=== PATIENT | male | born 1985 | race Caucasian/White ===

== ENCOUNTER 2021-08-03 01:06 | Emergency (ER) | payer OTHER ==
[~2021-08-03] VITALS: Ht 185.4 cm; Wt 108.9 kg
[2021-08-03 01:46] LABS: ABSOLUTE EOSINOPHILS 0.2 thou/uL (0.0-0.7); ABSOLUTE LYMPHOCYTES 1.8 thou/uL (0.8-5.3); ABSOLUTE MONOCYTES 0.5 thou/uL (0.0-1.2); ABSOLUTE NEUTROPHILS 4.2 thou/uL (1.6-8.1); BASOPHILS 0.4 %; EOSINOPHILS 2.4 %; HEMATOCRIT 41.2 % (42.0-52.0); LYMPHOCYTES 27.1 %; MCH 28.6 pg (26.0-34.0); MCHC 33.9 g/dL (28.0-37.0); MCV 84.5 fL (80.0-100.0); MONOCYTES 7.2 %; MPV 7.2 fl. (7.2-11.1); NUCLEATED RBCS 0 /100WBC; PLATELET COUNT* 229 thou/uL (150-400); POLYS 62.9 %; RBC 4.88 mil/uL (4.50-6.00); RDW-CV 12.9 % (10.5-14.5); WBC 6.7 thou/uL (4.0-11.0)
[2021-08-03 02:15] LABS: ALBUMIN 3.5 g/dL (3.4-5.0); CALCIUM 8.1 mg/dL (8.5-10.1); CREATININE 1.5 mg/dL (0.6-1.3); POTASSIUM 3.9 mmol/L (3.5-5.1); TOTAL BILIRUBIN 0.3 mg/dL (<0.1-1.0); TOTAL PROTEIN 6.7 g/dL (6.4-8.2)
[2021-08-03 02:53] VITALS: BP 139/85
--- NOTE | 2021-08-03 11:11 | EKG ---
[place] [address] ELECTROCARDIOGRAM REPORT Name: ALFIE ROSSI Room: [facility]#: [id number] Admission: 08/03/21 Attend Phys: Discharge: 08/03/21 Date of : 85 Date of Service: 08/03/21 0114 Report #: [id number] THIS REPORT FOR: //name// [facility] ED Test Date: 2021-08-03 Test Time: 01:14:49 Pat Name: ALFIE ROSSI Department: Room: Gender: Analysis Mgr: CHIARA : 1985 Requested By: Angelica Ortiz Order Number: [id number] MD: Jn Clemente Measurements Intervals [place] Rate: 86 P: 28 KS: 147 QRS: 47 QRSD: 78 T: 27 QT: 337 QTc: 403 Interpretive Statements Sinus rhythm Baseline wander in lead(s) V1,V2 No previous ECG available for comparison Electronically Signed On 08-03-2021 11:11:43 [employer] by Jn Clemente [email or web address] <ELECTRONICALLY SIGNED> By: Jn Clemente MD, [facility] 08/03/21 1111 0114 0114 Jn Clemente MD, [facility] /EPI
== END 2021-08-03 02:54 | disposition home or self-care (01) ==
LOC: M.ERS 01:06
PROVIDERS: Emergency Medicine
DX: R07.89 Other chest pain (principal)